=== PATIENT | female | born 1990 | race Caucasian/White ===

== ENCOUNTER 2019-02-12 11:16 | Inpatient (IN) | payer BC ==
[2019-02-12] MEDS ORDERED: Ondansetron PF 4 MG/2 ML Vial IVP PRN ×2 (11:46→16:52)
[2019-02-12] MEDS ORDERED: Lidocaine 1% (PF) 30 ML VIAL SC PRN (11:46)
[2019-02-12] MEDS ORDERED: Docusate 100 MG CAP PO PRN (11:46)
[2019-02-12] MEDS ORDERED: NS / Oxytocin 40 units/1000ml 1,000 ML IV PRN (11:46)
[2019-02-12] MEDS ORDERED: Promethazine HCl 25 MG/ML VIAL IM PRN ×2 (11:46→16:52)
[2019-02-12 11:57] VITALS: BMI 32.0
[2019-02-12 12:59] LABS: Mean Corpuscular Hemoglobin 27.4 pg (27.0-31.0); Platelet Count 190 thou/uL (130-400); RBC Distribution Width 14.9 % (11.5-14.5); White Blood Cell (WBC) Count 9.6 thou/uL (4.8-10.8)
[2019-02-12] MEDS: Lactated Ringer's 1,000 ML IV SCH (13:03)
[2019-02-12 13:38] LABS: HBSAg Index 0.35 S/CO (0-0.99); Hep B Surf Ag Non-Reactive S/CO (NonReactive); Syphilis Antibody Nonreactive (Nonreactive); Syphilis Antibody Index 0.02 S/CO (<1.00 Non-Reactive)
[2019-02-12] MEDS ORDERED: Bupivacaine/Epinephrine 0.25% 30 ML VIAL ONE (15:00)
[2019-02-12] MEDS ORDERED: Bupivacaine 0.25% HCL 30 ML VIAL ONE (15:00)
[2019-02-12] MEDS ORDERED: Fentanyl 4 mcg/Bup 0.1% Cadd 100 ML ONE ×2 (15:04→22:55)
[2019-02-12] MEDS ORDERED: Fentanyl 100 MCG/2 ML VIAL ONE (16:14)
[2019-02-12] MEDS ORDERED: Naloxone HCl 0.4 mg/ml Vial IVP PRN ×2 (16:52)
[2019-02-12] MEDS ORDERED: Lactated Ringer's 500 ML IV PRN (16:52)
[2019-02-12] MEDS ORDERED: Acetaminophen 325 MG TAB PO PRN (16:52)
[2019-02-12] MEDS ORDERED: ePHEDrine/0.9% NaCl/PF SYRINGE 50 mg/10 ml SLOW IVP PRN (16:52)
[2019-02-12] MEDS ORDERED: diphenhydrAMINE 50 MG/ML VIAL IVP PRN (16:52)
[2019-02-12] MEDS ORDERED: Fentanyl 4 mcg/Bupivacaine 0.1% Cassette 100 ML EPIDURAL SCH (17:00)
[2019-02-12] MEDS ORDERED: Communication Order-Pharmacy FS SCH (17:00)
[2019-02-12] MEDS: NS w/ Oxytocin 10 units 500 ML IV SCH (17:01)
[2019-02-13] MEDS: NS / Oxytocin 40 units/1000ml 1,000 ML IV SCH ×2 (01:20→03:57)
[2019-02-13] MEDS ORDERED: Lanolin Ointment 7 GM TUBE TOP PRN (01:58)
[2019-02-13] MEDS ORDERED: Zolpidem Tartrate 5 MG TAB PO PRN (01:58)
[2019-02-13] MEDS ORDERED: Bisacodyl 10 MG SUPP PR PRN (01:58)
[2019-02-13] MEDS ORDERED: Benzocaine-Menthol 82.5 ML CAN TOP PRN (01:58)
[2019-02-13] MEDS ORDERED: Ondansetron PF 4 MG/2 ML Vial IVP PRN (01:58)
[2019-02-13] MEDS ORDERED: Milk Of Magnesia 30 ML UDCUP PO PRN (01:58)
[2019-02-13] MEDS ORDERED: HYDROcodone/Acetaminophen 5/325 mg Tablet PO PRN (01:58)
[2019-02-13] MEDS ORDERED: Preparation H Ointment 28 GM TUBE PR PRN (01:58)
[2019-02-13] MEDS: Ibuprofen 800 MG TAB PO SCH ×4 (05:09→21:29)
[2019-02-13] MEDS: HYDROcodone/Acetaminophen 5/325 mg Tablet PO PRN ×5 (05:09→23:47)
[2019-02-13] MEDS: Lactated Ringer's 1,000 ML IV SCH ×4 (07:03→21:32)
[2019-02-13] MEDS: Ferrous Sulfate 325 MG TAB PO SCH ×2 (08:22→18:13)
[2019-02-13] MEDS ORDERED: Adacel (T-DAP) 0.5 ML SYRINGE IM ONE (09:00)
[2019-02-13] MEDS: Docusate Calcium (SURFAK) 240 MG CAP PO SCH ×2 (10:08→21:28)
[2019-02-13] MEDS: Prenatal Vitamin 1 TAB PO SCH (10:08)
[2019-02-13] MEDS: NS w/ Oxytocin 10 units 500 ML IV SCH (11:13)
[2019-02-14] MEDS: HYDROcodone/Acetaminophen 5/325 mg Tablet PO PRN ×2 (04:19→09:38)
[2019-02-14] MEDS: Lactated Ringer's 1,000 ML IV SCH (04:23)
[2019-02-14] MEDS: Ibuprofen 800 MG TAB PO SCH (06:22)
[2019-02-14 08:12] VITALS: BP 122/72; TEMP 97.7
[2019-02-14] MEDS: Ferrous Sulfate 325 MG TAB PO SCH (08:36)
[2019-02-14] MEDS: Prenatal Vitamin 1 TAB PO SCH (09:37)
[2019-02-14] MEDS: Docusate Calcium (SURFAK) 240 MG CAP PO SCH (09:38)
== END 2019-02-14 12:00 | disposition home or self-care (01) | DRG 807 ==
LOC: L&D/OP 11:16 → L&D 12:00 → 3SE 02-13 04:44
PROVIDERS: ADMIT Obstetrics & Gynecology; ATTEND Obstetrics & Gynecology
PROC: 10907ZC Drainage of Amniotic Fluid, Therapeutic from Products of Conception, Via Natural or Artificial Opening (ICD-10-PCS; principal; 2019-02-12)
PROC: 10D07Z6 Extraction of Products of Conception, Vacuum, Via Natural or Artificial Opening (ICD-10-PCS; 2019-02-12)
PROC: 0KQM0ZZ Repair Perineum Muscle, Open Approach (ICD-10-PCS; 2019-02-12)
PROC: 3E033VJ Introduction of Other Hormone into Peripheral Vein, Percutaneous Approach (ICD-10-PCS; 2019-02-12)
DX: O99.02 Anemia complicating childbirth (principal); Z37.0 Single live birth; O75.81 Maternal exhaustion complicating labor and delivery; Z3A.38 38 weeks gestation of pregnancy; D64.9 Anemia, unspecified; O99.62 Diseases of the digestive system complicating childbirth; O99.344 Other mental disorders complicating childbirth; O69.81X0 Labor and delivery complicated by cord around neck, without compression, not applicable or unspecified; K21.9 Gastro-esophageal reflux disease without esophagitis; F41.9 Anxiety disorder, unspecified; F32.9 Major depressive disorder, single episode, unspecified; O70.1 Second degree perineal laceration during delivery; Z88.2 Allergy status to sulfonamides; Z88.0 Allergy status to penicillin
CPT/HCPCS: 36415; 51702; 85027; 86780; 86850; 86900; 86901; 87340; J2001; J2405; J2590; J3010; S0020